=== PATIENT | female | born 1945 | race Caucasian/White ===

== ENCOUNTER → 2016-08-02 | Outpatient (CLI) | payer OTHER ==
[~2016-08-02] MED LIST: ALLOPURINOL300 MG PO; DYAZIDE 37.5-21 EACH PO; HYDROCORTISONE; IBUPROFEN600 MG PO; KEPPRA500 MG PO; MACROBID 100 M100 MG PO; METFORMIN HCL750 MG PO; METOPROLOL TART25 MG PO; NORCO 5-325 TA1 EACH PO; OMEGA-31000 MG PO; PROAIR HFA8.5 GM PO; PROVERA10 MG PO; SYNTHROID50 MCG PO; TRIAMTERENE-HC1 EAC1 PO; XARELTO 15 MG T15 MG PO; ZETIA10 MG PO
== END ==
LOC: CT 07-29 08:00
DX: I26.99 Other pulmonary embolism without acute cor pulmonale (principal); E11.9 Type 2 diabetes mellitus without complications; R91.8 Other nonspecific abnormal finding of lung field; Z88.0 Allergy status to penicillin; Z88.5 Allergy status to narcotic agent
CPT/HCPCS: 36415; 82565; 84520; J7050; Q9963

== ENCOUNTER → 2020-11-09 | Outpatient (CLI) | payer OTHER ==
[~2020-11-09] MED LIST changes: +FLOMAX0.4 MG PO; +OMNICEF 300 MG300 MG PO; +PERCOCET 5/325 T1 EA PO; +ZOFRAN ODT 4 MG4 MG SL
== END ==
LOC: HEART 5 09:24
DX: R53.83 Other fatigue (principal); R00.2 Palpitations; R06.02 Shortness of breath; R53.1 Weakness; I08.3 Combined rheumatic disorders of mitral, aortic and tricuspid valves
CPT/HCPCS: 93306

== ENCOUNTER → 2021-02-01 | Outpatient (CLI) | payer OTHER ==
[2021-02-01 08:43] LABS: BUN/CREATININE RATIO 19 (0-10)
== END ==
LOC: LAB 07:54
PROVIDERS: Internal Medicine Nephrology
DX: N18.31 Chronic kidney disease, stage 3a (principal)
CPT/HCPCS: 36415; 80069; 82570; 84156

== ENCOUNTER → 2021-04-06 | Outpatient (CLI) | payer OTHER ==
[2021-04-06 16:03] LABS: BUN/CREATININE RATIO 20 (0-10)
== END ==
LOC: LAB 14:58
PROVIDERS: Internal Medicine Nephrology
DX: N18.31 Chronic kidney disease, stage 3a (principal)
CPT/HCPCS: 80069; 82570; 84156